=== PATIENT | male | born 1960 | race Asian ===

== ENCOUNTER 2018-09-19 22:11 | Emergency (ER) | payer OTHER ==
[2018-09-19 22:43] VITALS: BMI 23.7
[2018-09-20 00:06] LABS: BASO % 0.4 % (0-2.0); EOS % 3.5 % (0-4.5); HEMOGLOBIN 15.8 GM/dL (11.7-16.9); MCHC 34.5 g/dl (32.0-35.9); MEAN CELL VOLUME 92.7 fl (80-96); MEAN PLT VOLUME 8.6 fl (7.5-11.1); MONO % 8.2 % (3.8-10.2); NEUT % 66.9 % (42.8-82.8); PLATELET COUNT 138 K/MM3 (134-434); RBC 4.96 M/mm3 (4.00-5.60); WHITE BLOOD COUNT 7.1 K/mm3 (4.0-10.0)
[2018-09-20 00:23] LABS: INR 0.97 (0.83-1.09); PROTHROMBIN TIME (PATIENT) 11.4 SEC (9.7-13.0)
[2018-09-20 00:42] LABS: ALBUMIN 3.9 g/dl (3.4-5.0); BILIRUBIN,TOTAL 1.5 mg/dL (0.2-1); CALCIUM 9.6 mg/dL (8.5-10.1); CREATININE 0.7 mg/dL (0.55-1.3); POTASSIUM 4.4 mmol/L (3.5-5.1); TOT PROT 7.4 g/dl (6.4-8.2)
[2018-09-20] MEDS ORDERED: ASPIRIN 325 MG TABLET PO ONE (00:50)
[2018-09-20] MEDS ORDERED: ENOXAPARIN NA (PORCINE) 80 MG/0.8 ML DISP.SYRIN SQ ONE ×2 (00:51→00:58)
[2018-09-20] MEDS ORDERED: NITROGLYCERIN 2% OINTMENT - 1GM PACKET TD ONE ×2 (00:52→00:57)
[2018-09-20] MEDS ORDERED: ASPIRIN 325 MG TABLET ONE (00:57)
--- NOTE | 2018-09-20 00:59 | PDOC ---
Documentation entered by Tammy Ly SCRIBE, acting as scribe for Martin Mar MD. Mratin Mar MD: This documentation has been prepared by the reinaldoibe, Tammy Ly SCRIBE, under my direction and personally reviewed by me in its entirety. I confirm that the documentation accurately reflects all work, treatment, procedures, and medical decision making performed by me. History of Present Illness - General Chief Complaint: Chest Pain Stated Complaint: CHEST PAIN/HIGH BLOOD SUGAR Time Seen by Provider: 09/19/18 23:14 History Source: Family Exam Limitations: No Limitations - History of Present Illness Initial Comments: 09/19/18 23:34 The patient is a 58-year-old male, with a past medical history of DM and HTN, who presents with chest pain, pressure-like in character, lasting 3 minutes, nonpleuritic, intermittent, with associated shortness of breath, palpitations, weakness, and dizziness. The patient denies any fever, chills, nausea, vomiting, diarrhea, constipation or abdominal pain. Denies any urinary symptoms. Allergies: NKA PCP: Dr. Tacho Moeller Past History - Past Medical History Allergies/Adverse Reactions: Allergies Allergy/AdvReac Type Severity Reaction Status Date / Time No Known Allergies Allergy Verified 09/19/18 22:40 COPD: No Diabetes: Yes HTN: Yes Other medical history: hx of hepititis B was treated. - Suicide/Smoking/Psychosocial Hx Smoking History: Unknown if ever smoked Have you smoked in the past 12 months: No Information on smoking cessation initiated: No Hx Alcohol Use: No Drug/Substance Use Hx: No Review of Systems - Review of Systems Able to Perform ROS?: Yes Comments:: 09/19/18 23:35 CONSTITUTIONAL: (+)Weakness. No fever, no chills, no fatigue EYES: No visual changes ENT: No ear pain, no sore throat CARDIOVASCULAR: (+)chest pain, palpitations RESPIRATORY: (+)Shortness of breath. No cough, GI: No abdominal pain, no nausea, no vomiting, no constipation, no diarrhea GENITOURINARY: No dysuria, no frequency, no hematuria MUSKULOSKELETAL: No back pain, no joint pain, no myalgias SKIN: No rash NEURO: (+)Dizziness. No headache *Physical Exam - Vital Signs Last Vital Signs Temp Pulse Resp BP Pulse Ox 98.0 F 75 16 169/94 100 09/19/18 22:37 09/19/18 22:37 09/19/18 22:37 09/19/18 22:37 09/19/18 22:37 - Physical Exam Comments: 09/20/18 00:18 CONSTITUTIONAL: Well-appearing; well-nourished; in no apparent distress HEAD: Normocephalic; atraumatic EYES: PERRL; EOM intact ENMT: External appears normal; normal oropharynx NECK: Supple; non-tender; no cervical lymphadenopathy CARD: Normal S1, S2; no murmurs, rubs, or gallops RESP: Normal chest excursion with respiration; breath sounds clear and equal bilaterally; no wheezes, rhonchi, or rales ABD: Soft, non-distended; non-tender; no palpable organomegaly, no palpable hernias EXT: Normal ROM in all four extremities; non-tender to palpation; distal pulses intact SKIN: Warm, dry, no rash NEURO: No focal neurological deficiencies. Heart Score/ECG Review - ECG Intrepretation Comment:: 09/20/18 00:47 EKG was reviewed by Dr. Mar at 00:36. Impression: Normal sinus rhythm at 61 bpm. Normal ECG. ED Treatment Course - LABORATORY CBC & Chemistry Diagram: 09/19/18 23:50 09/19/18 23:50 - ADDITIONAL ORDERS Additional order review: Laboratory Results 09/19/18 09/19/18 23:50 23:50 PT with INR 11.40 INR 0.97 Sodium 137 Potassium 4.4 Chloride 103 Carbon Dioxide 30 Anion Gap 5 L BUN 12.0 Creatinine 0.7 Est GFR (CKD-EPI)AfAm 119.72 Est GFR (CKD-EPI)NonAf 103.30 Random Glucose 223 H Calcium 9.6 Total Bilirubin 1.5 H AST 37 ALT 33 Alkaline Phosphatase 103 Creatine Kinase 124 Troponin I 1.26 H* Total Protein 7.4 Albumin 3.9 09/19/18 23:50 RBC 4.96 MCV 92.7 MCHC 34.5 RDW 13.0 MPV 8.6 Neutrophils % 66.9 Lymphocytes % 21.0 Monocytes % 8.2 Eosinophils % 3.5 Basophils % 0.4 - RADIOLOGY Radiology Studies Ordered: Category Date Time Status CHEST X-RAY PORTABLE* [RAD] Stat Radiology 09/19/18 23:29 Taken - Medications Given in the ED: ED Medications Discontinued Medications Generic Name Dose Route Start Last Admin Trade Name Eli PRN Reason Stop Dose Admin Aspirin 325 mg 09/20/18 00:50 09/20/18 01:04 Asa - PO 09/20/18 00:51 325 mg ONCE ONE Administration Enoxaparin Sodium 80 mg 09/20/18 00:51 09/20/18 01:04 Lovenox - SQ 09/20/18 00:52 80 mg ONCE ONE Administration Nitroglycerin 1 inch 09/20/18 00:52 09/20/18 01:04 Nitro-Bid 2% Paste - TD 09/20/18 00:53 1 inch ONCE ONE Administration Medical Decision Making - Medical Decision Making 09/20/18 00:57 Patient is a 58-year-old Serbian speaking male with history of hypertension and diabetes who presents with intermittent left-sided chest pain for the past 3 days. In the ER, patient is noted to be mildly hypertensive with minimal chest discomfort on initial evaluation. Initial EKG shows no evidence of acute ischemia, there is no evidence of ST segment elevations or hyperacute T waves. Repeat EKG is unchanged. Chest x-ray reveals no evidence of cardiomegaly, normal mediastinal with no evidence of infiltrates or effusion. CBC is within normal limit. CMP reveals a negative CPK but elevated high sensitivity troponin. Patient's symptoms are consistent with a non-ST elevation UT. We'll administer aspirin, Lovenox subcutaneous at 1 mg/kg dose, as well as 1 inch of nitroglycerin paste. Will consult cardiology. Will admit to telemetry. There is no indication for thrombolyzes or primary PTCA at this time. *DC/Admit/Observation/Transfer Diagnosis at time of Disposition: Non-ST elevated myocardial infarction - Discharge Dispostion Condition at time of disposition: Fair Decision to Admit order: Yes - Referrals Referrals: Tacho Moeller MD [Primary Care Provider] - - Patient Instructions - Post Discharge Activity - Attestations Physician Attestion: 09/20/18 00:57 The documentation was prepared by the scribe under my direct supervision. I have reviewed the documentation which correctly represents the findings, medical decision-making and critical action taken by me.
--- NOTE | 2018-09-20 02:27 | HP ---
CHIEF COMPLAINT: PCP: HISTORY OF PRESENT ILLNESS: ER course was notable for: (1) (2) (3) Recent Travel: PAST MEDICAL HISTORY: PAST SURGICAL HISTORY: Social History: Smoking: Alcohol: Drugs: Family History: Allergies No Known Allergies Allergy (Verified 09/19/18 22:40) HOME MEDICATIONS: REVIEW OF SYSTEMS CONSTITUTIONAL: Absent: fever, chills, diaphoresis, generalized weakness, malaise, loss of appetite, weight change HEENT: Absent: rhinorrhea, nasal congestion, throat pain, throat swelling, difficulty swallowing, mouth swelling, ear pain, eye pain, visual changes CARDIOVASCULAR: Absent: chest pain, syncope, palpitations, irregular heart rate, lightheadedness , peripheral edema RESPIRATORY: Absent: cough, shortness of breath, dyspnea with exertion, orthopnea, wheezing, stridor, hemoptysis GASTROINTESTINAL: Absent: abdominal pain, abdominal distension, nausea, vomiting, diarrhea, constipation, melena, hematochezia GENITOURINARY: Absent: dysuria, frequency, urgency, hesitancy, hematuria, flank pain, genital pain MUSCULOSKELETAL: Absent: myalgia, arthralgia, joint swelling, back pain, neck pain SKIN: Absent: rash, itching, pallor HEMATOLOGIC/IMMUNOLOGIC: Absent: easy bleeding, easy bruising, lymphadenopathy, frequent infections ENDOCRINE: Absent: unexplained weight gain, unexplained weight loss, heat intolerance, cold intolerance NEUROLOGIC: Absent: headache, focal weakness or paresthesias, dizziness, unsteady gait, seizure, mental status changes, bladder or bowel incontinence PSYCHIATRIC: Absent: anxiety, depression, suicidal or homicidal ideation, hallucinations. PHYSICAL EXAMINATION Vital Signs - 24 hr 09/19/18 22:37 Temperature 98.0 F Pulse Rate 75 Respiratory 16 Rate Blood Pressure 169/94 O2 Sat by Pulse 100 Oximetry (%) GENERAL: Awake, alert, and fully oriented, in no acute distress. HEAD: Normal with no signs of trauma. EYES: Pupils equal, round and reactive to light, extraocular movements intact, sclera anicteric, conjunctiva clear. No lid lag. EARS, NOSE, THROAT: Ears normal, nares patent, oropharynx clear without exudates. Moist mucous membranes. NECK: Normal range of motion, supple without lymphadenopathy, JVD, or masses. LUNGS: Breath sounds equal, clear to auscultation bilaterally. No wheezes, and no crackles. No accessory muscle use. HEART: Regular rate and rhythm, normal S1 and S2 without murmur, rub or gallop. ABDOMEN: Soft, nontender, not distended, normoactive bowel sounds, no guarding, no rebound, no masses. No hepatomegaly or splenomegaly. MUSCULOSKELETAL: Normal range of motion at all joints. No bony deformities or tenderness. No CVA tenderness. UPPER EXTREMITIES: 2+ pulses, warm, well-perfused. No cyanosis. No clubbing. No peripheral edema. LOWER EXTREMITIES: 2+ pulses, warm, well-perfused. No calf tenderness. No peripheral edema. NEUROLOGICAL: Cranial nerves II-XII intact. Normal speech. Normal gait. PSYCHIATRIC: Cooperative. Good eye contact. Appropriate mood and affect. SKIN: Warm, dry, normal turgor, no rashes or lesions noted, normal capillary refill. Laboratory Results - last 24 hr 09/19/18 09/19/18 09/19/18 23:50 23:50 23:50 WBC 7.1 RBC 4.96 Hgb 15.8 Hct 46.0 MCV 92.7 MCH 32.0 MCHC 34.5 RDW 13.0 Plt Count 138 MPV 8.6 Absolute Neuts (auto) 4.8 Neutrophils % 66.9 Lymphocytes % 21.0 Monocytes % 8.2 Eosinophils % 3.5 Basophils % 0.4 Nucleated RBC % 0 PT with INR 11.40 INR 0.97 Sodium 137 Potassium 4.4 Chloride 103 Carbon Dioxide 30 Anion Gap 5 L BUN 12.0 Creatinine 0.7 Est GFR (CKD-EPI)AfAm 119.72 Est GFR (CKD-EPI)NonAf 103.30 Random Glucose 223 H Calcium 9.6 Total Bilirubin 1.5 H AST 37 ALT 33 Alkaline Phosphatase 103 Creatine Kinase 124 Troponin I 1.26 H* Total Protein 7.4 Albumin 3.9 ASSESSMENT/PLAN: ATTENDING PHYSICIAN STATEMENT I saw and evaluated the patient. I reviewed the resident's note and discussed the case with the resident. I agree with the resident's findings and plan as documented. SUBJECTIVE: OBJECTIVE: ASSESSMENT AND PLAN:
--- NOTE | 2018-09-20 03:32 | PDOC ---
*Physical Exam - Vital Signs Last Vital Signs Temp Pulse Resp BP Pulse Ox 98.0 F 67 14 162/101 H 100 09/19/18 22:37 09/20/18 03:08 09/20/18 03:08 09/20/18 03:08 09/20/18 03:08 ED Treatment Course - LABORATORY CBC & Chemistry Diagram: 09/19/18 23:50 09/19/18 23:50 - ADDITIONAL ORDERS Additional order review: Laboratory Results 09/20/18 09/19/18 09/19/18 01:25 23:50 23:50 PT with INR 11.40 INR 0.97 Sodium 137 Potassium 4.4 Chloride 103 Carbon Dioxide 30 Anion Gap 5 L BUN 12.0 Creatinine 0.7 Est GFR (CKD-EPI)AfAm 119.72 Est GFR (CKD-EPI)NonAf 103.30 Random Glucose 223 H Calcium 9.6 Total Bilirubin 1.5 H AST 37 ALT 33 Alkaline Phosphatase 103 Creatine Kinase 144 124 Troponin I 2.51 H* 1.26 H* Total Protein 7.4 Albumin 3.9 09/19/18 23:50 RBC 4.96 MCV 92.7 MCHC 34.5 RDW 13.0 MPV 8.6 Neutrophils % 66.9 Lymphocytes % 21.0 Monocytes % 8.2 Eosinophils % 3.5 Basophils % 0.4 - Medications Given in the ED: ED Medications Discontinued Medications Generic Name Dose Route Start Last Admin Trade Name Freq PRN Reason Stop Dose Admin Aspirin 325 mg 09/20/18 00:50 09/20/18 01:04 Asa - PO 09/20/18 00:51 325 mg ONCE ONE Administration Enoxaparin Sodium 80 mg 09/20/18 00:51 09/20/18 01:04 Lovenox - SQ 09/20/18 00:52 80 mg ONCE ONE Administration Nitroglycerin 1 inch 09/20/18 00:52 09/20/18 01:04 Nitro-Bid 2% Paste - TD 09/20/18 00:53 1 inch ONCE ONE Administration Medical Decision Making - Medical Decision Making 09/20/18 03:27 58-year-old male admitted to hospitalist service, I was alerted that patient's troponin had increased markedly since previous, Bedside reassessment done, patient is chest pain-free and in no distress Repeat EKG shows no ST segment elevations, there is some hyperacuity to T waves in anterior leads Call placed to admitting team 09/20/18 04:47 Case discussed with the cardiac care unit nurse at [facility], patient accepted by Dr. NAJERA to cardiology service Patient transferred by ALS, consents signed by patient's family who is at the bedside was also providing translation *DC/Admit/Observation/Transfer Diagnosis at time of Disposition: Non-ST elevated myocardial infarction - Discharge Dispostion Condition at time of disposition: Fair - Referrals - Patient Instructions - Post Discharge Activity
--- NOTE | 2018-09-20 03:42 | PN ---
Teaching Attending Note Name of Resident: Mateo Palomino Consultation: S: Asked to see the patient for Chest Pain; further information regarding HPI/ROS/ PMH/PSH/FH/SH reviewed and per resident note O: NAD, AAO, resting in bed Euvolemic Tele reviewed CN2-12 wnl, no fnd Normal mood, appropriate behavior EKG reviewed CXR reviewed A/P: #NSTEMI -Discussed with Dr. Cortés; given chest pain with positive troponin and +CKMb we recommend transfer to outside hospital in case cath is needed as this is a service not available at this hospital. Recommend also administering high- intensity statin and 1x BB. No need for nitro unless persistent chest pain. Can also consider loading with plavix. Thank you for involving [facility]; please recall if needed. *Patient not accepted to hospitalist service; I was contacted that patient had positive troponin and requested CKMB and repeat troponin and repeat EKG. Never was formally accepted by attending of record.
[2018-09-20 04:41] VITALS: BP 165/99; PULSE 70
--- NOTE | 2018-09-20 04:57 | CONSULT ---
Consultation: REQUESTING PROVIDER: ED attending CONSULT REQUEST: We have been asked to medically evaluate this patient for ( specify). HISTORY OF PRESENT ILLNESS: 58M with pmh of HTN, DM, HepB presents with complaint of L-sided chest pressure while laying down in bed after a nap. Pressure-like pain lasted ~3mins and radiated to jaw. Subsided on its own. Had associated dizziniess. 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 Pressure-like pain lasting ~1min at that time. Denies sweating, PATTON, palpitations. Translation provided with assistance from phone manager transplant(# [phone]) and pt's adult daughter, at bedside. REVIEW OF SYSTEMS: CONSTITUTIONAL: dizziness Absent: fever, chills, diaphoresis, generalized weakness, malaise, loss of appetite, weight change HEENT: Absent: rhinorrhea, nasal congestion, throat pain, throat swelling, difficulty swallowing, mouth swelling, ear pain, eye pain, visual changes CARDIOVASCULAR: chest pain/pressure Absent: syncope, palpitations, irregular heart rate, lightheadedness, peripheral edema RESPIRATORY: Absent: cough, shortness of breath, wheezing, stridor, hemoptysis GASTROINTESTINAL: Absent: abdominal pain, abdominal distension, nausea, vomiting, diarrhea, constipation, melena, hematochezia GENITOURINARY: Absent: dysuria, frequency, urgency, hesitancy, hematuria MUSCULOSKELETAL: Absent: myalgia, arthralgia, joint swelling, back pain, neck pain SKIN: Absent: rash, itching, pallor ENDOCRINE: Absent: unexplained weight gain, unexplained weight loss NEUROLOGIC: dizziness Absent: headache, focal weakness or paresthesias, unsteady gait, seizure, mental status changes, bladder or bowel incontinence PSYCHIATRIC: Absent: anxiety, depression. PHYSICAL EXAMINATION Vital Signs - 24 hr 09/19/18 09/20/18 09/20/18 22:37 03:08 04:41 Temperature 98.0 F Pulse Rate 75 Pulse Rate [ 67 70 Right] Respiratory 16 14 16 Rate Blood Pressure 169/94 Blood Pressure 162/101 H 165/99 [Right Arm] O2 Sat by Pulse 100 100 100 Oximetry (%) GENERAL: Awake, alert, and fully oriented, in no acute distress. HEAD: Normal with no signs of trauma. EYES: Pupils equal, extraocular movements intact, sclera anicteric, conjunctiva clear. EARS, NOSE, THROAT: Ears normal, nares patent, oropharynx clear without exudates. Moist mucous membranes. NECK: Normal range of motion, supple without lymphadenopathy, JVD, or masses. LUNGS: Breath sounds equal, clear to auscultation bilaterally. No wheezes, and no crackles. No accessory muscle use. HEART: Regular rate and rhythm, normal S1 and S2 without murmur, rub or gallop. No TTP of chest wall ABDOMEN: Soft, nontender, not distended, no guarding, no rebound, no masses. MUSCULOSKELETAL: Normal range of motion at all joints. No bony deformities or tenderness. No CVA tenderness. UPPER EXTREMITIES: warm, well-perfused. No cyanosis. No peripheral edema. LOWER EXTREMITIES: 2+ pulses, warm, well-perfused. No calf tenderness. No peripheral edema. NEUROLOGICAL: Normal speech. Moving extremities spontaneously PSYCHIATRIC: Cooperative. Good eye contact. Appropriate mood and affect. SKIN: Warm, dry, normal turgor, no rashes or lesions noted. Laboratory Results - last 24 hr 09/19/18 09/19/18 09/19/18 23:50 23:50 23:50 WBC 7.1 RBC 4.96 Hgb 15.8 Hct 46.0 MCV 92.7 MCH 32.0 MCHC 34.5 RDW 13.0 Plt Count 138 MPV 8.6 Absolute Neuts (auto) 4.8 Neutrophils % 66.9 Lymphocytes % 21.0 Monocytes % 8.2 Eosinophils % 3.5 Basophils % 0.4 Nucleated RBC % 0 PT with INR 11.40 INR 0.97 Sodium 137 Potassium 4.4 Chloride 103 Carbon Dioxide 30 Anion Gap 5 L BUN 12.0 Creatinine 0.7 Est GFR (CKD-EPI)AfAm 119.72 Est GFR (CKD-EPI)NonAf 103.30 Random Glucose 223 H Calcium 9.6 Total Bilirubin 1.5 H AST 37 ALT 33 Alkaline Phosphatase 103 Creatine Kinase 124 CK-MB (CK-2) Troponin I 1.26 H* Total Protein 7.4 Albumin 3.9 09/20/18 09/20/18 01:25 01:25 WBC RBC Hgb Hct MCV MCH MCHC RDW Plt Count MPV Absolute Neuts (auto) Neutrophils % Lymphocytes % Monocytes % Eosinophils % Basophils % Nucleated RBC % PT with INR INR Sodium Potassium Chloride Carbon Dioxide Anion Gap BUN Creatinine Est GFR (CKD-EPI)AfAm Est GFR (CKD-EPI)NonAf Random Glucose Calcium Total Bilirubin AST ALT Alkaline Phosphatase Creatine Kinase 144 CK-MB (CK-2) 6.8 H Troponin I 2.51 H* Total Protein Albumin Active Medications Generic Name Dose Route Start Last Admin Trade Name Freq PRN Reason Stop Dose Admin Enoxaparin Sodium 40 mg 09/20/18 10:00 Lovenox - SQ DAILY TIFFANI ASSESSMENT/PLAN: 58M with pmh of HTN, DM, HepB presenting with pressure-like CP at rest. Troponins uptrended from 1.26 -> 2.5. Initial EKG w/o ST elevations - recommend transfer patient to tertiary care center for further management Dispo: We will continue to follow the patient. Thank you for this consultative opportunity. Mateo Augustin, DO PGY-1 Medicine, PM-Float [id number] 09/20/18 Visit type - Emergency Visit Emergency Visit: Yes ED Registration Date: 09/20/18 Care time: The patient presented to the Emergency Department on the above date and was hospitalized for further evaluation of their emergent condition. - New Patient This patient is new to me today: Yes Date on this admission: 09/20/18 - Critical Care Critical Care patient: No ATTENDING PHYSICIAN STATEMENT I saw and evaluated the patient. I reviewed the resident's note and discussed the case with the resident. I agree with the resident's findings and plan as documented. SUBJECTIVE: OBJECTIVE: ASSESSMENT AND PLAN:
[2018-09-20 05:23] VITALS: TEMP 98.2
[2018-09-20] MEDS ORDERED: ENOXAPARIN NA (PORCINE) 40 MG/0.4 ML DISP.SYRIN SQ SCH (10:00)
--- NOTE | 2018-09-20 17:04 | EKG ---
Test Reason : Blood Pressure : / mmHG Vent. Rate : 070 BPM Atrial Rate : 070 BPM P-R Int : 166 ms QRS Dur : 102 ms QT Int : 380 ms P-R-T Axes : 011 039 041 degrees QTc Int : 410 ms NORMAL SINUS RHYTHM NORMAL ECG NO PREVIOUS ECGS AVAILABLE Confirmed by DANDY MIXON MD ([id number]) on 09/20/2018 5:04:22 PM Referred By: Confirmed By:DANDY MIXON MD
--- NOTE | 2018-09-20 17:08 | EKG ---
Test Reason : Blood Pressure : / mmHG Vent. Rate : 061 BPM Atrial Rate : 061 BPM P-R Int : 170 ms QRS Dur : 100 ms QT Int : 400 ms P-R-T Axes : 014 033 008 degrees QTc Int : 402 ms NORMAL SINUS RHYTHM NORMAL ECG NO PREVIOUS ECGS AVAILABLE Confirmed by DANDY MIXON MD ([id number]) on 09/20/2018 5:08:39 PM Referred By: Confirmed By:DANDY MIXON MD
--- NOTE | 2018-09-20 17:09 | EKG ---
Test Reason : Blood Pressure : / mmHG Vent. Rate : 067 BPM Atrial Rate : 067 BPM P-R Int : 158 ms QRS Dur : 098 ms QT Int : 390 ms P-R-T Axes : 014 035 037 degrees QTc Int : 412 ms NORMAL SINUS RHYTHM NONSPECIFIC T WAVE ABNORMALITY ABNORMAL ECG WHEN COMPARED WITH ECG OF 20-SEP-2018 00:36, NO SIGNIFICANT CHANGE WAS FOUND Confirmed by DANDY MIXON MD ([id number]) on 09/20/2018 5:09:45 PM Referred By: Austen MOREAU Confirmed By:DANDY MIXON MD
== END 2018-09-20 04:45 | disposition short-term general hospital (02) ==
LOC: JER 22:11 → JERBED 09-20 01:44 → UNDOADMIN 09-20 01:44
PROC: 3E023GC Introduction of Other Therapeutic Substance into Muscle, Percutaneous Approach (ICD-10-PCS; principal; 2018-09-19)
DX: I21.4 Non-ST elevation (NSTEMI) myocardial infarction (principal); I10 Essential (primary) hypertension; Z86.19 Personal history of other infectious and parasitic diseases
CPT/HCPCS: 36415; 71045-TC-FY; 80053; 82550; 82553; 84484; 85025; 85610; 93005; 93010; 99284-25